=== PATIENT | male | born 1955 ===

== ENCOUNTER 2017-04-06 09:33 | Emergency (ER) | payer BC ==
--- NOTE | 2017-04-06 09:42 | Emergency Department Record ---
History of Present Illness - General Chief Complaint: Chest Pain Stated Complaint: CHEST PAIN Time Seen by Provider: 04/06/17 09:36 Source: Patient Mode of Arrival: Ambulatory Limitations: No limitations - History of Present Illness Initial Comments: 61 yo male presents with left upper chest ache for 5 days. The pain is constant but worse with coughing, moving, palpation, and changes in position. He had bronchitis like symptoms last week. Non productive cough. No hemoptysis. No pain into the back. The pain is non exertion related. He is a smoker. No abdominal pain, back pain, leg pain or edema. No history of DVT, CAD, Stroke. No rash. PCP is in [place]. The patient was seen in the [facility] and referred to the ED. MD Complaint: Chest pain -: Days(s) (5) Onset: Awoke with symptoms Pain Location: Left chest Pain Radiation: None Severity: Mild Consistency: Constant Improves With: Remaining still Worsens With: Inspiration, Movement, Palpation, Other (coughing) Context: Recent illness (bronchititis) Other Symptoms: Cough Treatments Prior to Arrival: None - Related Data Home Medications Medication Instructions Recorded Confirmed Last Taken Ibuprofen [Motrin] 800 mg PO Q8H PRN 04/06/17 04/06/17 04/05/17 Previous Rx's Medication Instructions Recorded Azithromycin [Zithromax] 250 mg PO DAILY #6 tab 04/06/17 Allergies Allergy/AdvReac Type Severity Reaction Status Date / Time No Known Drug Allergies Allergy Unverified 03/28/17 08:57 Review of Systems Constitutional: Denies: Chills, Fever, Malaise, Weakness Eyes: Denies: Eye discharge, Eye pain, Photophobia, Vision change ENT: Denies: Congestion, Ear pain, Epistaxis, Throat pain Respiratory: Reports: Cough. Denies: Dyspnea, Hemoptysis, Stridor, Wheezes Cardiovascular: Reports: As per HPI, Chest pain. Denies: Arrhythmia, Edema, Palpitations, Syncope Endocrine: Denies: Fatigue, Polydipsia, Polyuria Gastrointestinal: Denies: Abdominal pain, Diarrhea, Nausea, Vomiting Genitourinary: Denies: Dysuria, Frequency, Hematuria Musculoskeletal: Denies: Arthralgia, Back pain, Joint swelling, Myalgia Skin: Denies: Bruising, Change in color, Rash Neurological: Denies: Headache, Numbness, Weakness Psychiatric: Denies: Anxiety Hematological/Lymphatic: Denies: Blood Clots, Easy bleeding, Easy bruising, Swollen glands Physical Exam - General General Appearance: Alert, Oriented x3, Cooperative, No acute distress Limitations: No limitations - Head Head exam: Atraumatic, Normocephalic, Normal inspection - Eye Eye exam: Normal appearance. negative: Conjunctival injection, Periorbital swelling, Scleral icterus - ENT ENT exam: Normal exam, Mucous membranes moist Ear exam: Normal external inspection Nasal Exam: Normal inspection Mouth exam: Normal external inspection Teeth exam: Normal inspection Throat exam: Normal inspection. negative: Tonsillar erythema, Tonsillar exudate - Neck Neck exam: Normal inspection, Full ROM. negative: Tenderness - Respiratory Respiratory exam: Normal lung sounds bilaterally, Chest wall tenderness (The left upper chest is tender and completely reproducible with palpation, no SQ crepitus.). negative: Accessory muscle use, Decreased breath sounds, Prolonged expiratory, Rales, Respiratory distress, Rhonchi, Stridor, Wheezes - Cardiovascular Cardiovascular Exam: Regular rate, Normal rhythm, Normal heart sounds Peripheral Pulses: 2+: Radial (R), Radial (L) - GI/Abdominal GI/Abdominal exam: Soft. negative: Tenderness - Rectal Rectal exam: Deferred - exam: Deferred - Extremities Extremities exam: Normal inspection, Full ROM, Normal capillary refill. negative: Pedal edema, Tenderness - Back Back exam: Reports: Normal inspection, Full ROM. Denies: CVA tenderness (R), CVA tenderness (L), Muscle spasm, Rash noted, Tenderness - Neurological Neurological exam: Alert, Normal gait, Oriented X3 - Psychiatric Psychiatric exam: Normal affect, Normal mood - Skin Skin exam: Dry, Intact, Normal color, Warm Course - Reevaluation(s) Reevaluation #1: The patient was seen and examined for left chest pain The pain is completely reproducible with palpation, it has been constant for 5 days worse with cough, moving, and position changes EKG 09:34 NSR rate 66, intervals normal, axis normal, ST no acute changes, no depression, mild motion artifact. No acute changes. He is a very thin male 04/06/17 09:43 04/06/17 11:22 TheCTA of the chest is negative other than emphysema No PE Medical Decision Making - Lab Data Result diagrams: 04/06/17 09:37 04/06/17 09:40 Disposition Disposition: Discharge Clinical Impression: Chest wall pain Disposition: Home, Self-Care Condition: (1) Good Instructions: Chest Pain (ED), Chest Wall Pain (ED) Additional Instructions: Return if fever, cough, short of breath or any new concerns Follow up with your doctor Prescriptions: Azithromycin [Zithromax] 250 mg PO DAILY #6 tab Forms: Patient Portal Access Time of Disposition: 11:24 Quality - Quality Measures Quality Measures: N/A - Blood Pressure Screening Does Patient Have Any of the Following: No Blood Pressure Classification: Hypertensive Reading Systolic Measurement: 130 Diastolic Measurement: 93 Screening for High Blood Pressure: < Pre-Hypertensive BP, F/U Documented > [ [id number]] Pre-Hypertensive Follow-up Interventions: Referral to alternative/primary care provider.
[2017-04-06 09:51] LABS: BASO % 0.2 % (0-6); EOS % 2.7 % (0-6); GRAN % 59.9 % (47-80); HEMATOCRIT 41.3 % (42.0-52.0); HEMOGLOBIN 13.9 gm/dl (14.0-18.0); MEAN CELL VOLUME 92.8 fl (81-97); MEAN CORPUSCULAR HEMOGLOBIN 31.2 pg (27-33); MEAN CORPUSCULAR HGB CONC 33.7 g/dl (32-36); MEAN PLATELET VOLUME 10.2 fl (7.4-10.4); MONO % 8.2 % (0-9); PLATELET COUNT 250 K/uL (130-400); RED BLOOD COUNT 4.45 M/uL (4.40-5.70); RED CELL DISTRIBUTION WIDTH 12.9 % (11.5-14.5); WHITE BLOOD COUNT W/O DIFF 8.1 K/uL (4.2-12.2)
[2017-04-06 09:58] LABS: BLOOD UREA NITROGEN 22 mg/dL (6-20)
[2017-04-06 09:59] LABS: CREATININE 0.9 mg/dL (0.7-1.2); EST GLOMERULAR FILTRATION RATE > 60 mL/min
[2017-04-06 10:01] LABS: GLUCOSE,RANDOM 95 mg/dL (74-109)
--- NOTE | 2017-04-06 12:51 | CT ANGIOGRAM REPORT ---
EXAM: CTA OF THE CHEST WITH CONTRAST HISTORY: LEFT SIDED CHEST PAIN. TECHNIQUE: CTA of the chest was performed after intravenous administration of 80 ml of Omnipaque 350 contrast material. Sagittal and coronal MIP images were performed on an independent workstation. FINDINGS: There is no mass or filling defect to suggest pulmonary embolism. The heart size is normal. No pulmonary vascular congestion. There is mild underlying centrilobular emphysematous change. There is atelectasis in the left lung base. IMPRESSION: 1. MILD UNDERLYING CENTRILOBULAR EMPHYSEMATOUS CHANGE. ATELECTASIS IN THE LEFT LUNG BASE. 2. NO CTA FINDINGS SUGGESTIVE OF PULMONARY EMBOLUS. JOB NUMBER: [id number] MTDD
== END 2017-04-06 11:38 | disposition home or self-care (01) ==
LOC: ER 09:33
DX: R07.89 Other chest pain (principal); R05 Cough; F17.210 Nicotine dependence, cigarettes, uncomplicated
CPT/HCPCS: 99284 ×2; 85025; 80048; 84484; 85379; 71275; 93005; 93010; Q9967